=== PATIENT | male | born 1990 | race Caucasian/White ===

== ENCOUNTER → 2018-09-26 | Outpatient (CLI) | payer OTHER ==
--- NOTE | 2018-09-26 16:29 | RADIOLOGY IMAGING REPORT ---
FACILITY: [facility] - [place] PATIENT NAME: Venkata Nowak : 1990 MR: [id number] V: [id number] EXAM DATE: ORDERING PHYSICIAN: LARY YOUNG TECHNOLOGIST: Location: [facility] - [place] Patient: Venkata Nowak : 1990 Visit/Account:[id number] Date of Sevice: 09/26/2018 CHEST SINGLE AP HISTORY: Encounter for other administrative examination. COMPARISON: None FINDINGS: Cardiomediastinal contours: The heart size is normal. Lungs and pleura: There is no finding of an infiltrate, lymphadenopathy or pleural effusion. Bones/soft tissues: There are no findings of a fracture. There has been ORIF of a left clavicular fr acture in the past. IMPRESSION: 1. No active disease in the chest. 2. Status post ORIF of a left clavicular fracture. Report Dictated By: Gentry Owen MD at 09/26/2018 4:21 PM Report E-Signed By: Gentry Owen MD at 09/26/2018 4:22 PM WSN:[id number]
== END ==
LOC: RAD 15:38
PROVIDERS: ATTEND Physician Assistant
DX: Z01.89 Encounter for other specified special examinations (principal); Z87.81 Personal history of (healed) traumatic fracture
CPT/HCPCS: 71045